=== PATIENT | female | born 2000 | race Caucasian/White ===

== ENCOUNTER 2021-09-05 10:05 | Emergency (ER) | payer MEDICAID, SELFPAY ==
[~2021-09-05] VITALS: Ht 154.9 cm; Wt 81.6 kg
[2021-09-05 10:05] VITALS: BP_SYST 101
--- NOTE | 2021-09-05 10:05 | NUR ---
BROUGHT BACK TO TRIAGE TENT BED AND TRIAGED. WILL ASSUME CARE
--- NOTE | 2021-09-05 10:18 | NUR ---
DR SANTANA OUT TO TRIAGE TENT FOR EVALUATION
[2021-09-05 11:20] LABS: BASOPHILS % (AUTO) 0.2 % (0.0-2.0); EOSINOPHILS % (AUTO) 0.2 % (0.0-4.0); HEMATOCRIT 35.6 % (36-48); HEMOGLOBIN 12.1 g/dL (12.0-16.0); LYMPHOCYTES # (AUTO) 0.3 K/uL (1.0-5.5); LYMPHOCYTES % (AUTO) 3.7 % (20.5-51.5); MEAN CORPUSCULAR HEMOGLOBIN 26 pg (27-31); MEAN CORPUSCULAR HGB CONC 34 % (32-36); MEAN CORPUSCULAR VOLUME 77 fL (79.0-98.0); MONOCYTES # (AUTO) 0.5 K/uL (0.0-1.0); NEUTROPHILS # (AUTO) 6.9 K/uL (1.8-7.7); NEUTROPHILS % (AUTO) 88.9 % (40.0-70.0); PLATELET COUNT (AUTO) 249 K/uL (130-430); RED BLOOD CELL COUNT(AUTO) 4.62 MIL/uL (4.2-6.2); RED CELL DISTRIBUTION WIDTH 18.9 % (9.0-15.0); WHITE BLOOD COUNT (AUTO) 7.8 K/uL (4.8-10.8)
[2021-09-05 11:27] LABS: CREATININE 0.52 mg/dL (0.55-1.30); POTASSIUM 3.9 mmol/L (3.5-5.1)
[2021-09-05 11:35] LABS: INR 0.9 (0.8-1.2); PROTHROMBIN TIME 9.9 SECS (9.5-12.5)
[2021-09-05] MEDS: ONDANSETRON HCL 4 MG/2 ML VIAL IVP ONE (11:35)
[2021-09-05] MEDS: NACL 0.9% 1,000 ML IV ONE (11:38)
[2021-09-05 11:44] LABS: ALBUMIN 3.2 g/dL (3.4-4.8); TOTAL BILIRUBIN 0.2 mg/dL (0.0-1.0)
--- NOTE | 2021-09-05 11:53 | NUR ---
Fariba refused Zofram documented in [facility] but pt. refused
--- NOTE | 2021-09-05 11:56 | NUR ---
PT GIVEN CONSENT FOR MRI WHILE BEING . PT READING WITH BOYFRIEND.
--- NOTE | 2021-09-05 12:02 | NUR ---
PT REFUSING TO HAVE MRI DONE AT THIS TIME.
--- NOTE | 2021-09-05 12:03 | NUR ---
DR SANTANA OUT TO SPEAK WITH PT.
--- NOTE | 2021-09-05 12:10 | NUR ---
TAKEN TO MRI VIA WHEELCHAIR
--- NOTE | 2021-09-05 13:34 | NUR ---
PT RETURNED FROM MRI AND PLACED BACK TO BED IN OUTSIDE TRIAGE TENT. AWAITING RESULTS
[2021-09-05 13:45] VITALS: BP_SYST 111
[2021-09-05] MEDS: cefTRIAXone 1 GM IVPB PREMIX 50 ML IV ONE (14:00)
[2021-09-05] MEDS ORDERED: NITR-85 PO (14:06)
[2021-09-05] MEDS ORDERED: DOXY1TAB3 PO (14:06)
--- NOTE | 2021-09-05 15:12 | NUR ---
DR JEFFREY OUT TO SEE PT, PT RESTING QUIETLY.
[2021-09-05] MEDS ORDERED: cefTRIAXone 1 GM VIAL ONE (15:35)
--- NOTE | 2021-09-05 16:00 | NUR ---
Patient given written and verbal discharge instructions and verbalizes understanding. ER MD discussed with patient the results and treatment provided. Patient in stable condition. ID arm band removed. IV catheter removed intact and dressing applied, no active bleeding. Rx of DICLEGIS MACROBID given. Patient educated on pain management and to follow up with PMD. Pain Scale 0/10. Opportunity for questions provided and answered. Medication side effect fact sheet provided.
== END 2021-09-05 16:00 | disposition home or self-care (01) ==
LOC: SED 10:05
DX: O23.42 Unspecified infection of urinary tract in pregnancy, second trimester (principal); N39.0 Urinary tract infection, site not specified; Z3A.14 14 weeks gestation of pregnancy; Z79.899 Other long term (current) drug therapy; Z20.822 Contact with and (suspected) exposure to COVID-19
CPT/HCPCS: 36415; 74181; 80053; 83690; 84703; 85025; 85610; 85730; 87426; 96361; 96374; 99284; J0696 ×2; J2405; J7030